=== PATIENT | female | born 2000 | race African-American/Black ===

== ENCOUNTER 2024-03-11 01:45 | Emergency (ER) | payer OTHER ==
[~2024-03-11] VITALS: Ht 162.6 cm; Wt 71.5 kg
[2024-03-11] MEDS ORDERED: DIPH-435 PO (01:52)
[2024-03-11] MEDS ORDERED: PNV1TABL16 PO (01:52)
[2024-03-11 06:14] VITALS: BP 127/65; TEMP 98; O2SAT 99
== END 2024-03-11 06:15 | disposition home or self-care (01) ==
LOC: M ED 01:45
DX: O44.42 Low lying placenta NOS or without hemorrhage, second trimester (principal); Z3A.17 17 weeks gestation of pregnancy

== ENCOUNTER 2024-05-28 21:40 | Outpatient (CLI) | payer OTHER ==
[~2024-05-28 21:40] MED LIST: DIPH-435 PO; PNV1TABL16 PO
[2024-05-28 21:51] VITALS: BP 127/66
[2024-05-28] MEDS ORDERED: HOME MED LIST COMPLETE! XX SCH (22:00)
== END 2024-05-28 22:22 | disposition home or self-care (01) ==
LOC: M LDO 21:40
PROVIDERS: ATTEND Specialist
DX: O26.893 Other specified pregnancy related conditions, third trimester (principal); R10.9 Unspecified abdominal pain; W18.2XXA Fall in (into) shower or empty bathtub, initial encounter; Y92.9 Unspecified place or not applicable; Y93.9 Activity, unspecified; Y99.9 Unspecified external cause status; Z3A.28 28 weeks gestation of pregnancy
CPT/HCPCS: 59025; G0463

== ENCOUNTER → 2024-07-21 | Outpatient (REF) | payer OTHER | LOC: M PLALAB 14:38 | PROVIDERS: ATTEND Nurse Practitioner Family | DX: Z34.83 Encounter for supervision of other normal pregnancy, third trimester (principal) ==

== ENCOUNTER 2024-07-29 20:26 | Outpatient (CLI) | payer OTHER ==
[~2024-07-29] VITALS: Ht 162.6 cm; Wt 81.7 kg
[2024-07-29] MEDS ORDERED: VALT1TAB PO (20:40)
[2024-07-29 20:47] VITALS: BP 138/86
[2024-07-29] MEDS ORDERED: IRON65TA2 PO (21:53)
[2024-07-29] MEDS ORDERED: HOME MED LIST COMPLETE! XX SCH (21:55)
== END 2024-07-29 21:28 | disposition home or self-care (01) ==
LOC: M LDO 20:26
PROVIDERS: ATTEND Advanced Practice Midwife
DX: O26.893 Other specified pregnancy related conditions, third trimester (principal); O98.513 Other viral diseases complicating pregnancy, third trimester; O99.013 Anemia complicating pregnancy, third trimester; N89.8 Other specified noninflammatory disorders of vagina; B00.9 Herpesviral infection, unspecified; D50.9 Iron deficiency anemia, unspecified; Z3A.37 37 weeks gestation of pregnancy
CPT/HCPCS: 59025; G0463

== ENCOUNTER 2024-08-12 18:15 | Inpatient (IN) | payer OTHER ==
[~2024-08-12] VITALS: Ht 162.6 cm; Wt 84.7 kg
[~2024-08-12 18:15] MED LIST changes: +IRON65TA2 PO; +VALT1TAB PO
[2024-08-12] MEDS ORDERED: BENA25CA4 PO (19:00)
[2024-08-12] MEDS ORDERED: HOME MED LIST COMPLETE! XX SCH ×2 (19:05→20:20)
[2024-08-12] MEDS ORDERED: METHYLERGONOVINE MALEATE 0.2MG/ML 1ML VIAL IM PRN (19:15)
[2024-08-12] MEDS ORDERED: CARBOPROST TROMETHAMINE 250 MCG/ML AMP IM PRN (19:15)
[2024-08-12] MEDS ORDERED: LIDOCAINE 1% MDV 20ML VIAL INFIL PRN (19:15)
[2024-08-12] MEDS ORDERED: TRANEXAMIC ACID INJection 1,000 MG in NS 100 ML IV PRN (19:15)
[2024-08-12] MEDS: PENICILLIN G POTASSIUM 5 MU IV 5 MU in DEXTROSE 5% (D5W) MINI-BAG PLU 100 ML IV STA (19:42)
[2024-08-12 19:47] VITALS: BP 133/87
[2024-08-12 19:48] LABS: HEMATOCRIT 32.5 % (36.0-47.0); MEAN CORPUSCULAR HEMOGLOBIN 22.5 pg (27.0-33.0); MEAN CORPUSCULAR HGB CONC 30.8 g/dl (32.0-36.5); MEAN CORPUSCULAR VOLUME 73.2 fl (80.0-96.0); PLATELET COUNT, AUTOMATED 308 10^3/uL (150-450); RED BLOOD COUNT 4.44 10^6/uL (4.00-5.40); WHITE BLOOD COUNT 8.7 10^3/uL (4.0-10.0)
[2024-08-12 20:51] LABS: HEPATITIS C VIRUS ABY INDEX 0.23 INDEX (<0.8)
[2024-08-12 22:31] VITALS: BP 142/73
[2024-08-12] MEDS ORDERED: LR 500 ML IV PRN (23:05)
[2024-08-12] MEDS ORDERED: NALOXONE INJ 0.4MG/1ML VIAL IV PRN (23:05)
[2024-08-12] MEDS ORDERED: ePHEDrine SULFATE 25 MG/5 ML(5MG/ML) SYRINGE IVP PRN (23:05)
[2024-08-12] MEDS ORDERED: EPIDURAL/PCA KEYS XX PRN (23:05)
[2024-08-12] MEDS ORDERED: diphenhydrAMINE 50MG/ML VIAL IV PRN (23:05)
[2024-08-12] MEDS: LACTATED RINGER'S 1000 ML IV STA (23:18)
[2024-08-12 23:36] VITALS: BP 123/68
[2024-08-12] MEDS: PEN G POT 3,000,000 UNIT/50 ML 3,000,000 UNIT in IV 1 EA IV SCH (23:46)
[2024-08-13] VITALS (45 sets, daily range): BP systolic 103–148; BP diastolic 51–84; O2SAT 99–100
[2024-08-13] MEDS: FENTANYL/ROPIVACAINE/NACL BAG 100 ML EPIDURAL SCH (00:05)
[2024-08-13] MEDS: LR 1,000 ML IV SCH (00:14)
[2024-08-13] MEDS: OXYTOCIN DRIP 30 UNITS in IV 1 EA IV SCH (00:44)
[2024-08-13] MEDS: ONDANSETRON 4MG 2ML VIAL IV PRN (05:19)
[2024-08-13] MEDS ORDERED: RHOGAM 300MCG (1500IU) INJ IM SCH (10:30)
[2024-08-13] MEDS ORDERED: SIMETHICONE 80MG CHEW TAB PO PRN (10:30)
[2024-08-13] MEDS ORDERED: OXYTOCIN DRIP 30 UNITS in IV 1 EA IV SCH (10:30)
[2024-08-13] MEDS ORDERED: CALCIUM CARBONATE 500 MG CHEW U/D PO PRN (10:30)
[2024-08-13] MEDS ORDERED: ANUSOL HC CREAM 30GM TOP PRN (10:30)
[2024-08-13] MEDS ORDERED: ONDANSETRON 4MG 2ML VIAL IV PRN (10:30)
[2024-08-13] MEDS: OXYTOCIN DRIP 30 UNITS in IV 1 EA IV PRN (10:50)
[2024-08-13] MEDS: ACETAMINOPHEN 500 MG TAB PO PRN (14:01)
[2024-08-13] MEDS: IBUPROFEN 800 MG TAB PO SCH (14:38)
[2024-08-13] MEDS: DOCUSATE SODIUM 100MG CAPSULE PO SCH (21:06)
[2024-08-14 06:20] VITALS: BP 137/75; O2SAT 100
[2024-08-14 06:54] LABS: HEMATOCRIT 26.5 % (36.0-47.0); MEAN CORPUSCULAR HEMOGLOBIN 22.7 pg (27.0-33.0); MEAN CORPUSCULAR HGB CONC 30.2 g/dl (32.0-36.5); MEAN CORPUSCULAR VOLUME 75.1 fl (80.0-96.0); PLATELET COUNT, AUTOMATED 253 10^3/uL (150-450); RED BLOOD COUNT 3.53 10^6/uL (4.00-5.40); WHITE BLOOD COUNT 12.1 10^3/uL (4.0-10.0)
[2024-08-14] MEDS: valACYclovir HCL 500 MG TAB PO SCH (08:49)
[2024-08-14] MEDS: PRENATAL VITAMINS CHEWABLE TABLET PO SCH (08:49)
[2024-08-14 18:00] VITALS: BP 131/79; O2SAT 100
[2024-08-15 05:51] VITALS: BP 124/74; O2SAT 100
[2024-08-15] MEDS: MEASLES,MUMPS,RUBELLA VACCINE INJ (MMR-II) SC.IMMUN ONE (09:00)
[2024-08-15] MEDS ORDERED: ACET-683 PO (15:41)
[2024-08-15] MEDS ORDERED: IBUP80TA PO (15:41)
[2024-08-15 18:00] VITALS: BP 136/82; O2SAT 99
== END 2024-08-15 19:45 | disposition home or self-care (01) | DRG 807 ==
LOC: M LDO 18:15 → M LDI 19:15 → M OBS 08-13 12:23
PROVIDERS: ADMIT Obstetrics & Gynecology; ATTEND Obstetrics & Gynecology
PROC: 10E0XZZ Delivery of Products of Conception, External Approach (ICD-10-PCS; principal; 2024-08-13)
PROC: 0HQ9XZZ Repair Perineum Skin, External Approach (ICD-10-PCS; 2024-08-13)
PROC: 10907ZC Drainage of Amniotic Fluid, Therapeutic from Products of Conception, Via Natural or Artificial Opening (ICD-10-PCS; 2024-08-13)
DX: O70.0 First degree perineal laceration during delivery (principal); Z37.0 Single live birth; Z3A.39 39 weeks gestation of pregnancy; O99.824 Streptococcus B carrier state complicating childbirth

== ENCOUNTER → 2024-09-20 | Outpatient (CLI) | payer OTHER ==
[~2024-09-20] MED LIST changes: +ACET-683 PO; +BENA25CA4 PO; +IBUP80TA PO
== END ==
LOC: M PLALAB 13:46
PROVIDERS: ATTEND Obstetrics & Gynecology
DX: N91.2 Amenorrhea, unspecified (principal)